=== PATIENT | female | born 1965 | race Caucasian/White ===

== ENCOUNTER → 2020-02-03 15:46 | Outpatient (CLI) | payer OTHER, SELFPAY ==
--- NOTE | ~2020-02-03 | US_ITS ---
EXAMINATION: US thyroid DATE: 02/03/2020 16:06 INDICATION: Thyroid nodule. TECHNIQUE: Multiple ultrasound images of the thyroid were obtained. COMPARISON: Ultrasound 10/13/2018, 03/05/11 FINDINGS: The right thyroid lobe measures 4.3 x 1.0 x 1.1 cm. The left thyroid lobe measures 4.1 x 0.9 x 1.4 c m. In the left thyroid lobe, there is a 16 mm solid, hypoechoic, pazut-inpl-whfk nodule with ill-def ined margin without echogenic foci (TI-RADS TR4), decreased in size from 21 mm on 03/05/11 and with hi story of benign biopsy on 03/01/08. IMPRESSION: 1. Left thyroid nodule with decrease in size from 03/05/2011 and with history of benign biopsy on 02/02. No follow-up is needed. Reviewed, dictated and finalized at location A. IMPRESSION: 1. Left thyroid nodule with decrease in size from 03/05/2011 and with history of benign biopsy on 03/01/2008. No follow-up is needed.
== END ==
PROVIDERS: PCP Family Medicine; Visit Provider Family Medicine
DX: E04.1 Nontoxic single thyroid nodule (principal)
CPT/HCPCS: 76536

== ENCOUNTER → 2020-02-28 15:48 | Outpatient (CLI) | payer OTHER, SELFPAY ==
--- NOTE | ~2020-02-28 | DEXA_ITS ---
Bone Density Report Name: Beverley Carbajal Age: 54 Sex: Female Ethnicity: White Date of : 1965 Indication: postmenopausal; screening for osteoporosis; height loss; seizure disorder; Referring Provider: KAVIN, [facility] Study: Bone densitometry was performed. Exam Date: February 28, 2020 Accession number: [id number] Bone Density: Region BMD T-score Z-score Classification AP Spine (L1-L4) 0.777 -2.5 -1.4 Osteoporosis Femoral Neck (Left) 0.628 -2.0 -1.0 Osteopenia Total Hip (Left) 0.787 -1.3 -0.6 Osteopenia Femoral Neck (Right) 0.623 -2.0 -1.0 Osteopenia Total Hip (Right) 0.769 -1.4 -0.8 Osteopenia Total Hip Mean 0.778 -1.4 -0.7 Osteopenia World Health Organization criteria for BMD impression classify patients as: Normal (T-score at or above -1.0), Osteopenia (T-score between -1.0 and -2.5), or Osteoporosis (T-score at or below -2.5). 10-year Fracture Risk: FRAX not reported because: Some T-score for Spine Total or Hip Total or Femoral Neck at or below -2.5 Clinical Information Provided by Patient: Has used the following medications: Vitamin D, Calcium Has the following medical conditions: Any Seizure Disorders Patient maximum height was 64 Menopause Age: 45 No regular weight bearing exercise Drinks caffeinated beverages Onset of menses at age 14 Number of children 2 Missed period for more than 6 months in a row Impression: The patient has osteoporosis, based on the Total Spine T-score. Discussion: INCREASED RISK OF FRACTURE. BONE DENSITY IS UNDESIRABLY LOW AT ONE OR MORE SKELETAL SITES, CONSISTENT WITH POSTMENOPAUSAL OSTEOPOROSIS. This patient's lowest T-score meets the World Health Organization's (WHO) criteria for osteoporosis at one or more sites (T-score -2.5 or below). In untreated patients, the risk of osteoporotic fracture increases approximately two-fold for each 1.0 SD decrease in T-score. Low bone density is not the only risk factor for fracture; also consider factors such as patient's age, frailty or poor health, risk of falling, risk of injury, previous osteoporotic fracture, family history of osteoporosis, cigarette smoking, low body weight, etc. Not everyone with low bone mineral density has osteoporosis; osteomalacia and other metabolic bone disorders should also be considered. Patients who have osteoporosis should be evaluated for specific diseases and conditions (secondary causes) that may cause or contribute to bone loss. The [place] [employer]ocrinologists (AACE) and National Osteoporosis Foundation (NOF) recommend pharmacologic intervention for all postmenopausal women whose T-score is in this range. The patient should follow a healthful lifestyle (good nutrition with adequate calcium and vitamin D, and appropriate weight-bearing exercise). Follow-Up: Consider a repeat
== END ==
PROVIDERS: Visit Provider Family Medicine
DX: E04.1 Nontoxic single thyroid nodule (principal); M85.89 Other specified disorders of bone density and structure, multiple sites; M81.0 Age-related osteoporosis without current pathological fracture
CPT/HCPCS: 77080

== ENCOUNTER 2020-05-09 16:31 | Outpatient (CLI) | payer OTHER, SELFPAY ==
--- NOTE | ~2020-05-09 | MM_ITS ---
EXAMINATION: MM screening [facility] BI w rebecca HISTORY: Screening mammogram TECHNIQUE: Craniocaudal and mediolateral oblique 3-D tomosynthesis images were obtained and synthetic 2-D images were generated. CAD analysis was submitted and interpreted. COMPARISON: 11/27/2014, 12/03/2012 BREAST PARENCHYMAL COMPOSITION: The breasts are heterogeneously dense, which may obscure small masses . FINDINGS: There is no evidence of suspicious mass, calcification, or architectural distortion to sugg est malignancy in either breast. There has been no suspicious interval change. IMPRESSION: 1. No mammographic evidence of malignancy. 2. Recommend routine screening mammography in one year. BI-RADS Category 1: Negative Reviewed, dictated and finalized at location A. ING MACHINE OPERATOR
== END 2020-05-09 16:32 | disposition home or self-care (01) ==
LOC: ANHIMG 16:34
PROVIDERS: PCP Family Medicine; Visit Provider Family Medicine
DX: Z12.31 Encounter for screening mammogram for malignant neoplasm of breast (principal)
CPT/HCPCS: 77063; 77067

== ENCOUNTER 2021-01-16 10:24 | Emergency (ER) | payer OTHER, SELFPAY ==
[2021-01-16 10:35] VITALS: BP 112/76; PULSE 87; RESP 16; TEMP 36.8; O2SAT 99
--- NOTE | 2021-01-16 10:41 | ED.URI ---
HPI - URI/Sore Throat General Chief Complaint: Upper Respiratory Infection Stated Complaint: Sore Throat Time Seen by Provider: 01/16/21 10:43 Source: patient Mode of arrival: ambulatory Limitations: no limitations History of Present Illness HPI Narrative: Beverley Carbajal is a 55 yo female with a PMH of hypothyroid, high choesteresterol, ostepenia, seizures, who comes to [facility] with complaints of a burning sore throat that started yesterday. She called her primary care physician who refused to see her in the office and told her to go get swabbed for strep throat. She is afebrile. Related Data Home Medications Medication Instructions Recorded Confirmed alendronate 70 mg PO DAILY 01/16/21 01/16/21 aspirin 81 mg PO DAILY 01/16/21 01/16/21 atorvastatin 20 mg PO DAILY 01/16/21 01/16/21 calcium carbonate-vitamin D3 1 tablet PO DAILY 01/16/21 01/16/21 carbamazepine 100 mg PO DAILY 01/16/21 01/16/21 levothyroxine 100 mcg PO DAILY 01/16/21 01/16/21 oxcarbazepine 300 mg PO DAILY 01/16/21 01/16/21 zonisamide 100 mg PO DAILY 01/16/21 01/16/21 Allergies Allergy/AdvReac Type Severity Reaction Status Date / Time metoclopramide Allergy Intermediate SHAKES Verified 01/16/21 10:44 codeine Allergy Mild Rash Verified 01/16/21 10:44 hydrocodone Allergy Mild Rash Verified 01/16/21 10:44 lorazepam Allergy Mild Confusion Verified 01/16/21 10:44 penicillin G Allergy Mild Rash Verified 01/16/21 10:44 Penicillins Allergy Mild RASH Verified 01/16/21 10:44 Review of Systems Review of Systems: CONSTITUTIONAL: Denies fever, chills, sweats. EYES: Denies visual changes, redness, discharge. ENT: Denies rhinorrhea, congestion, has sore throat, otalgia. CARDIOVASCULAR: Denies chest pain, palpitations, edema. RESPIRATORY: Denies dyspnea, wheezing, cough GASTROINTESTINAL: Denies abdominal pain, nausea, vomiting, diarrhea. GENITOURINARY: Denies dysuria, hematuria, abnormal discharge SKIN: Denies rash or itching. NEUROLOGIC: Denies numbness, or focal weakness. PSYCHIATRIC: Denies anxiety or depression. PMFSH Past Medical History Medical History Basal cell carcinoma (BCC) of right nasal sidewall High cholesterol Osteopenia Seizure disorder Social History Social History Smoking status: Never smoker Alcohol intake: never Comments At time of signature, I agree with nursing past medical, surgical, social and family history. There is no relevant family history pertinent to the presenting complaint. Exam Narrative: GENERAL: This is a well-nourished, well-developed patient, in mild distress. HEAD: normocephalic, atraumatic. EYES: Sclera clear/white. Vision is grossly intact. EARS: External ears normal, auditory canals clear and without drainage, TMs normal without perforation. Hearing grossly intact. NOSE: External nose normal without nasal discharge, nares without redness, no rhinorrhea. THROAT: Mucous membranes moist, posterior pharynx erythema, no exudate NECK: Neck supple, mild-tender CARDIOVASCULAR: Regular rate and rhythm without murmurs, gallops, or rubs. RESPIRATORY: Clear to auscultation. Breath sounds equal bilaterally. No wheezes, rales, or rhonchi. GASTROINTESTINAL: Abdomen soft, SKIN: warm, intact with no suspicious lesions or rash, good texture and turgor. NEURO: awake, alert, and oriented to person, place and time. There were no obvious focal neurologic abnormalities. Steady gait EXTREMITIES: Normal range of motion. 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 She took a home Covid test was negative but has a PCR scheduled for this afternoon at [facility]. Her initial strep is negative and both be sent for culture. She had a telemedicine visit with her doctor nubia
== END 2021-01-16 11:18 | disposition home or self-care (01) ==
PROVIDERS: Emergency Provider Nurse Practitioner; PCP Family Medicine
DX: J02.9 Acute pharyngitis, unspecified (principal); Z79.82 Long term (current) use of aspirin
CPT/HCPCS: 87081; 87880; 99213; G0463

== ENCOUNTER 2021-02-11 10:35 | Emergency (ER) | payer OTHER, SELFPAY ==
[2021-02-11 10:45] VITALS: BP 130/88; PULSE 118; RESP 18; TEMP 37.9; O2SAT 99
--- NOTE | 2021-02-11 11:07 | ED.URI ---
HPI - URI/Sore Throat General Chief Complaint: Upper Respiratory Infection Stated Complaint: Sinus Time Seen by Provider: 02/11/21 11:07 Source: patient, family and RN notes reviewed Mode of arrival: ambulatory Limitations: no limitations History of Present Illness HPI Narrative: Matheus is a 55-year-old female ambulatory to the [facility] today. Patient states she is having sinus pressure ear pain cough for greater than 4 weeks. Patient states she was treated 1 month ago for strep throat with azithromycin. Patient states it was a virtual visit no test was done. Patient states that she has used multiple mvdl-idr-ckipcip remedies without relief. Patient states that sore throat is better. Patient complains of chronic cough and left-sided sinus pressure. Patient has taken Zyrtec, Mucinex, Tylenol Cold, with no relief. Patient states she had a negative Covid test at home test on Thursday. Patient states she gets tested weekly at school for Covid. Patient has had her Pfizer vaccine. Patient states on Thursday she had a fever of 100.5. Related Data Home Medications Medication Instructions Recorded Confirmed alendronate 70 mg PO DAILY 01/16/21 01/16/21 aspirin 81 mg PO DAILY 01/16/21 01/16/21 atorvastatin 20 mg PO DAILY 01/16/21 01/16/21 calcium carbonate-vitamin D3 1 tablet PO DAILY 01/16/21 01/16/21 carbamazepine 100 mg PO DAILY 01/16/21 01/16/21 levothyroxine 100 mcg PO DAILY 01/16/21 01/16/21 oxcarbazepine 300 mg PO DAILY 01/16/21 01/16/21 zonisamide 100 mg PO DAILY 01/16/21 01/16/21 Allergies Allergy/AdvReac Type Severity Reaction Status Date / Time metoclopramide Allergy Intermediate SHAKES Verified 02/11/21 13:02 codeine Allergy Mild Rash Verified 02/11/21 13:02 hydrocodone Allergy Mild Rash Verified 02/11/21 13:02 lorazepam Allergy Mild Confusion Verified 02/11/21 13:02 penicillin G Allergy Mild Rash Verified 02/11/21 13:02 Penicillins Allergy Mild RASH Verified 02/11/21 13:02 Review of Systems Review of Systems: CONSTITUTIONAL: Denies body aches, chills, or sweats.+ fever EYES: Denies visual changes, redness, or discharge. ENT: + rhinorrhea, congestion, sore throat, and otalgia. CARDIOVASCULAR: Denies chest pain, palpitations, or edema. RESPIRATORY: + cough, negative for shortness of breath GASTROINTESTINAL: Denies abdominal pain, nausea, vomiting, or diarrhea. GENITOURINARY: Denies dysuria or hematuria. SKIN: Denies rash, itching, or wounds. MUSCULOSKELETAL: Denies back pain, joint pain, or myalgia. NEUROLOGIC: Denies headache, numbness, tingling, or weakness. PSYCH: Denies depression or anxiety. All systems reviewed & are unremarkable except as noted in HPI and below PMFSH Past Medical History Medical History Basal cell carcinoma (BCC) of right nasal sidewall High cholesterol Osteopenia Seizure disorder Social History Social History Smoking status: Never smoker Alcohol intake: never Comments At time of signature, I have reviewed and agree with nursing past medical, surgical, social and family history unless otherwise noted. Please see nursing chart for further information. There is no relevant family history pertinent to the presenting complaint Exam Narrative: GENERAL: Well-appearing, well-nourished, and in no acute distress. HEAD: Normocephalic, atraumatic. EYES: EOMI. No redness or drainage. Conjunctivae normal. ENT: Mucous membranes pink and moist. Nares clear. No rhinorrhea. TMs dull, fluid filled with mild bulging, Throat erythemic with clear post-nasal discharge, Uvula midline. left maxillary sinus tenderness with palpation. NECK: Normal AROM. Supple. + left anterior cervical lymphadenopathy. CHEST: No respiratory distress. Clear to auscultation. MUSCULOSKELETAL: No bony tenderness. EXTREMITIES: Normal range of motion. No edema. SKIN: Warm, dry, no rash. Capillary refill
--- NOTE | 2021-02-11 11:17 | ED.URI ---
HPI - URI/Sore Throat General Chief Complaint: Upper Respiratory Infection Stated Complaint: Sinus Time Seen by Provider: 02/11/21 11:07 Source: patient and RN notes reviewed Mode of arrival: ambulatory Limitations: no limitations History of Present Illness HPI Narrative: Patient is a 55-year-old female here today for left-sided sinus pressure, ear pain, cough. Patient was treated 1 month ago with azithromycin for strep throat by her primary care on a virtual visit. Patient states she has had the cough and sinus pressure for since she was treated. Patient states it got worse on Thursday with a fever of 100.5. Patient has taken multiple orab-cvc-dhtzyov medications in the last month for treatment. Patient states she has used Zyrtec, Tylenol Cold and sinus, and others. 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 She is vaccinated with the Simphatic vaccine. She has been using Mucinex without relief. MD elicited complaint: fever and sinus pain Pertinent past history: seasonal allergies Onset (ago): month(s) Related Data Home Medications Medication Instructions Recorded Confirmed alendronate 70 mg PO DAILY 01/16/21 01/16/21 aspirin 81 mg PO DAILY 01/16/21 01/16/21 atorvastatin 20 mg PO DAILY 01/16/21 01/16/21 calcium carbonate-vitamin D3 1 tablet PO DAILY 01/16/21 01/16/21 carbamazepine 100 mg PO DAILY 01/16/21 01/16/21 levothyroxine 100 mcg PO DAILY 01/16/21 01/16/21 oxcarbazepine 300 mg PO DAILY 01/16/21 01/16/21 zonisamide 100 mg PO DAILY 01/16/21 01/16/21 Allergies Allergy/AdvReac Type Severity Reaction Status Date / Time metoclopramide Allergy Intermediate SHAKES Verified 01/16/21 10:44 codeine Allergy Mild Rash Verified 01/16/21 10:44 hydrocodone Allergy Mild Rash Verified 01/16/21 10:44 lorazepam Allergy Mild Confusion Verified 01/16/21 10:44 penicillin G Allergy Mild Rash Verified 01/16/21 10:44 Penicillins Allergy Mild RASH Verified 01/16/21 10:44 Review of Systems Review of Systems: CONSTITUTIONAL: Denies body aches, chills, or sweats; + fever EYES: Denies visual changes, redness, or discharge. ENT:+ rhinorrhea, congestion, sore throat, or otalgia. CARDIOVASCULAR: Denies chest pain, palpitations, or edema. RESPIRATORY: + cough or denies dyspnea. GASTROINTESTINAL: Denies abdominal pain, nausea, vomiting, or diarrhea. GENITOURINARY: Denies dysuria or hematuria. SKIN: Denies rash, itching, or wounds. MUSCULOSKELETAL: Denies back pain, joint pain, or myalgia. NEUROLOGIC: Denies headache, numbness, tingling, or weakness. PSYCH: Denies depression or anxiety. All systems reviewed & are unremarkable except as noted in HPI and below PMFSH Past Medical History Medical History Basal cell carcinoma (BCC) of right nasal sidewall High cholesterol Osteopenia Seizure disorder Social History Social History Smoking status: Never smoker Alcohol intake: never Comments At time of signature, I have reviewed and agree with nursing past medical, surgical, social and family history unless otherwise noted. Please see nursing chart for further information. There is no relevant family history pertinent to the presenting complaint Exam Narrative: GENERAL: Well-appearing, well-nourished, and in no acute distress. HEAD: Normocephalic, atraumatic. EYES: EOMI. No redness or drainage. Conjunctivae normal. ENT: Mucous membranes pink and moist. Nares clear. No rhinorrhea. TMs dull, fluid filled, mild bulging, Throaterythematous, clear post nasal drainage. Uvula midline. left maxillary sinus tenderness with palpation. NECK: Normal AROM. Supple. left anterior cervical lymphadenopathy. CHEST: No respiratory distress. Clear to auscultation. MUSCULOSKELETAL: No bony tenderness. EXTREMITIES: Normal range of motion. No edema. SKIN: Warm, dry, no rash. Capil
== END 2021-02-11 11:41 | disposition home or self-care (01) ==
PROVIDERS: Emergency Provider Nurse Practitioner Family; PCP Family Medicine
DX: J01.00 Acute maxillary sinusitis, unspecified (principal); E78.00 Pure hypercholesterolemia, unspecified; M81.0 Age-related osteoporosis without current pathological fracture; Z85.828 Personal history of other malignant neoplasm of skin; G40.909 Epilepsy, unspecified, not intractable, without status epilepticus
CPT/HCPCS: 99213; G0463

== ENCOUNTER → 2021-03-05 17:36 | Outpatient (CLI) | payer OTHER, SELFPAY ==
--- NOTE | ~2021-03-05 | XR_ITS ---
EXAMINATION: XR ribs RT 2V w CXR 2V INDICATION: Cough TECHNIQUE: Frontal and lateral views of the chest and 3 views of the left ribs were obtained. COMPARISON: None. FINDINGS: The lungs are free of acute opacities. There is no pleural effusion or pneumothorax. The ca rdiomediastinal silhouette is normal. There is mild thoracic spondylosis. There is a nondisplaced fra cture at the lateral aspect of the right 10th rib. Surgical clips in the right upper quadrant are lik vinny from prior cholecystectomy. IMPRESSION: 1. Nondisplaced right 10th rib fracture. 2. No acute cardiopulmonary abnormality. Reviewed, dictated and finalized at location B.
== END ==
PROVIDERS: PCP Family Medicine; Visit Provider Family Medicine
DX: R07.81 Pleurodynia (principal); R05.9 Cough, unspecified; S23.29XA Dislocation of other parts of thorax, initial encounter
CPT/HCPCS: 71046; 71100

== ENCOUNTER 2021-07-16 16:43 | Emergency (ER) | payer OTHER, SELFPAY ==
[2021-07-16 17:08] VITALS: BP 133/82; PULSE 98; RESP 18; TEMP 37.1; O2SAT 100
--- NOTE | 2021-07-16 17:43 | ED.URI ---
HPI - URI/Sore Throat General Chief Complaint: Upper Respiratory Infection Stated Complaint: sinus pressure Time Seen by Provider: 07/16/21 17:30 Source: patient and RN notes reviewed Mode of arrival: ambulatory Limitations: no limitations History of Present Illness HPI Narrative: 55-year-old female presents with concern for 1 week history of sinus pressure, pain, congestion, pain behind her eyes, rhinorrhea, sneezing. Reports symptoms started after she went to the dentist. Reports history of sinus infections. Reports taking laro-vlz-yziqmjw medications including Sudafed without relief. MD elicited complaint: rhinorrhea, nasal congestion and sinus pain Related Data Home Medications Medication Instructions Recorded Confirmed aspirin 81 mg PO DAILY 01/16/21 07/16/21 atorvastatin 20 mg PO DAILY 01/16/21 07/16/21 levothyroxine 100 mcg PO DAILY 01/16/21 07/16/21 oxcarbazepine 300 mg PO DAILY 01/16/21 07/16/21 zonisamide 100 mg PO DAILY 01/16/21 07/16/21 Allergies Allergy/AdvReac Type Severity Reaction Status Date / Time metoclopramide Allergy Intermediate SHAKES Verified 07/16/21 17:21 codeine Allergy Mild Rash Verified 07/16/21 17:21 hydrocodone Allergy Mild Rash Verified 07/16/21 17:21 lorazepam Allergy Mild Confusion Verified 07/16/21 17:21 penicillin G Allergy Mild Rash Verified 02/11/21 13:02 Penicillins Allergy Mild RASH Verified 07/16/21 17:21 Review of Systems Review of Systems: CONSTITUTIONAL: Reports malaise. Denies chills, sweats, or fever. EYES: Denies visual changes, redness, or discharge. ENT: Reports rhinorrhea, congestion, sinus pain. Denies otalgia and sore throat. CARDIOVASCULAR: Denies chest pain, palpitations, or edema. RESPIRATORY: Reports occasional cough. Denies dyspnea. GASTROINTESTINAL: Denies abdominal pain, nausea, vomiting, diarrhea SKIN: Denies rash or itching. MUSCULOSKELETAL: Denies myalgia. NEUROLOGIC: Reports headache. All systems reviewed & are unremarkable except as noted in HPI and below PMFSH Past Medical History Medical History Basal cell carcinoma (BCC) of right nasal sidewall High cholesterol Osteopenia Seizure disorder Social History Social History Smoking status: Never smoker Alcohol intake: never Comments At time of signature, agree with nursing past medical, surgical, social and family history. There is no relevant family history pertinent to the presenting complaint Exam Narrative: GENERAL: Well-appearing, well-nourished, and in no acute distress. HEAD: Normocephalic EYES: PERRLA, conjunctivae clear ENT: Nares clear, turbinates edematous and erythematous, sinus tenderness. Mucous membranes moist. TM pearly olea with dull light reflex bilaterally; no tragal tenderness. Oropharynx not erythematous without lesions. Tonsils not enlarged and without exudate, no drooling, no hoarseness, no trismus, uvula midline. NECK: Supple. No lymphadenopathy CHEST: Clear to auscultation, breath sounds equal. No wheezing, rhonchi, rales, or stridor. No respiratory distress, speaks in full sentences. HEART: Regular rate and rhythm. No murmur heard. SKIN: Warm, dry, no rash. NEURO: Alert and oriented x3. PSYCH: Normal mood and affect Course Course Emergency Course: Patient is aware of diagnosis, understands and agrees to treatment plan. Anticipatory guidance given. Patient agrees to follow-up as directed and is aware of reasons to seek care at the emergency department. Portions of this record may have been created with voice recognition software Level of Care: Express Care Visit Vital Signs Vital signs: Vital Signs Temperature 98.7 F 07/16/21 17:08 Pulse Rate 98 07/16/21 17:08 Respiratory Rate 18 07/16/21 17:08 Blood Pressure 133/82 07/16/21 17:08 Pulse Oximetry 100 07/16/21 17:08 Temperature 98.7 F 07/16/21 17:08 Pulse Rate 98 07/16/21 17:08
== END 2021-07-16 17:51 | disposition home or self-care (01) ==
PROVIDERS: Emergency Provider Nurse Practitioner; PCP Family Medicine
DX: J01.90 Acute sinusitis, unspecified (principal); E78.00 Pure hypercholesterolemia, unspecified; M85.80 Other specified disorders of bone density and structure, unspecified site; Z85.828 Personal history of other malignant neoplasm of skin; Z79.82 Long term (current) use of aspirin
CPT/HCPCS: 99213; G0463

== ENCOUNTER 2021-12-30 10:51 | Emergency (ER) | payer OTHER, SELFPAY ==
[2021-12-30 11:00] VITALS: BP 109/74; PULSE 98; RESP 18; TEMP 36.6; O2SAT 100
--- NOTE | 2021-12-30 11:25 | ED.URI ---
HPI - URI/Sore Throat General Chief Complaint: Upper Respiratory Infection Stated Complaint: fever,nasal congestion,chills Time Seen by Provider: 12/30/21 11:25 Source: patient Mode of arrival: ambulatory Limitations: no limitations History of Present Illness HPI Narrative: Ms. Carbajal is a 56-year-old female patient presenting to the clinic today with complaints of low-grade fever, sinus pressure, cough, sore throat, nasal congestion, and chills x4 days. She reports she has also had some nausea from the postnasal drip. She thinks that she may have a sinus infection. She reports that she has done 3 at home COVID test and they were all negative. Last test was last night around 10:00. Patient is declining COVID and strep testing in the clinic. MD elicited complaint: sore throat and nasal congestion Related Data Home Medications Medication Instructions Recorded Confirmed atorvastatin 20 mg tablet 20 mg PO DAILY 01/16/21 12/30/21 levothyroxine 100 mcg tablet 100 mcg PO DAILY 01/16/21 12/30/21 oxcarbazepine 300 mg tablet 300 mg PO DAILY 01/16/21 12/30/21 zonisamide 100 mg capsule 100 mg PO DAILY 01/16/21 12/30/21 Allergies Allergy/AdvReac Type Severity Reaction Status Date / Time metoclopramide Allergy Intermediate SHAKES Verified 12/30/21 11:17 codeine Allergy Mild Rash Verified 12/30/21 11:17 hydrocodone Allergy Mild Rash Verified 12/30/21 11:17 lorazepam Allergy Mild Confusion Verified 12/30/21 11:17 penicillin G Allergy Mild Rash Verified 12/30/21 11:17 Penicillins Allergy Mild RASH Verified 12/30/21 11:17 Review of Systems Review of Systems: Pertinent positives per HPI. Patient denies any rash, headache, visual changes, dizziness, shortness of breath, chest pain, palpitations, nausea, vomiting, diarrhea, constipation, abdominal pain, or any urinary issues. [facility] Past Medical History Medical History Basal cell carcinoma (BCC) of right nasal sidewall High cholesterol Osteopenia Seizure disorder Social History Social History Smoking status: Never smoker Alcohol intake: never Comments At the time of my signature, I reviewed and agree with the nursing past medical, surgical, social, and family history. There is no relevant family history pertinent to the patient complaint. Exam Narrative: General: Well-developed, well nourished, in no apparent distress Head: Normocephalic, atraumatic Eyes: Pupils equally round and reactive to light bilaterally, EOM intact, sclera and conjunctive clear, no discharge, lids normal Ears: TMs intact and dull, ear canals clear, no drainage, grossly hearing normal. Nose: Nares patent, clear nasal discharge, mild inflammation, no sinus tenderness. Mouth: Oral pharynx without lesions or masses, good dentition, MMM. Postnasal drip Neck: Supple, trachea midline, no enlargement of anterior or posterior cervical nodes, no thyroid masses or goiter palpable. Cardio: Regular rate and rhythm, s1 and s2 normal, no murmur appreciated. Resp: Clear to auscultation bilaterally, no rhonchi, rales, wheezing or rubs Course Course Emergency Course: Portions of this record may have been created with voice recognition software. Level of Care: Express Care Visit Vital Signs Vital signs: Vital Signs Temperature 36.6 C 12/30/21 11:00 Pulse Rate 98 12/30/21 11:00 Respiratory Rate 18 12/30/21 11:00 Blood Pressure 109/74 12/30/21 11:00 Pulse Oximetry 100 12/30/21 11:00 Oxygen Delivery Room Air 12/30/21 11:00 Temperature 36.6 C 12/30/21 11:00 Pulse Rate 98 12/30/21 11:00 Respiratory Rate 18 12/30/21 11:00 Blood Pressure 109/74 12/30/21 11:00 Pulse Oximetry 100 12/30/21 11:00 Oxygen Delivery Room Air 12/30/21 11:00 Vital signs reviewed MDM - URI/Sore Throat MDM Narrative Medical decision making narrative: At the time of vis
== END 2021-12-30 11:48 | disposition home or self-care (01) ==
PROVIDERS: Emergency Provider Nurse Practitioner Family; PCP Family Medicine
DX: J06.9 Acute upper respiratory infection, unspecified (principal); E78.00 Pure hypercholesterolemia, unspecified; M85.80 Other specified disorders of bone density and structure, unspecified site; G40.909 Epilepsy, unspecified, not intractable, without status epilepticus; Z85.828 Personal history of other malignant neoplasm of skin
CPT/HCPCS: 99213; G0463

== ENCOUNTER 2022-02-19 16:17 | Emergency (ER) | payer OTHER, SELFPAY ==
[2022-02-19 16:26] VITALS: BP 117/82; PULSE 104; RESP 18; TEMP 37.2; O2SAT 100
--- NOTE | 2022-02-19 16:37 | ED.URI ---
HPI - URI/Sore Throat General Chief Complaint: Upper Respiratory Infection Stated Complaint: Cough,Sore Throat,Congestion,Headache Time Seen by Provider: 02/19/22 16:35 Source: patient, RN notes reviewed and old records reviewed Mode of arrival: ambulatory Limitations: no limitations History of Present Illness HPI Narrative: 56-year-old female who presents to [facility] with complaints of cough, sore throat, congestion, headache for the past 2-3 weeks.She reports on Thursday that she had 101F fever, yesterday her chest started hurting and her throat hurts when she coughs. Patient reports that she has history of sinus infections. She states that she has taken 3 COVID tests which have been negative.Patient reports that she has taken everything OTC she can think of and symptoms have not improved. MD elicited complaint: cough and sore throat Pertinent past history: sinusitis Onset (ago): week(s) (2-3 weeks symptoms) Treatments prior to arrival: acetaminophen, ibuprofen (naproxen) and other (Sudafed, Mucinex DM, tesson pearls and nasal spray.) Related Data Home Medications Medication Instructions Recorded Confirmed atorvastatin 20 mg tablet 20 mg PO DAILY 01/16/21 02/19/22 levothyroxine 100 mcg tablet 100 mcg PO DAILY 01/16/21 02/19/22 oxcarbazepine 300 mg tablet 300 mg PO DAILY 01/16/21 02/19/22 zonisamide 100 mg capsule 100 mg PO TID 01/16/21 02/19/22 alendronate 70 mg tablet 70 mg PO WEEKLY 02/19/22 02/19/22 aspirin 81 mg tablet,delayed 81 mg DAILY 02/19/22 02/19/22 release Allergies Allergy/AdvReac Type Severity Reaction Status Date / Time metoclopramide Allergy Intermediate SHAKES Verified 02/19/22 16:42 codeine Allergy Mild Rash Verified 02/19/22 16:42 hydrocodone Allergy Mild Rash Verified 02/19/22 16:42 lorazepam Allergy Mild Confusion Verified 02/19/22 16:42 penicillin G Allergy Mild Rash Verified 02/19/22 16:42 Penicillins Allergy Mild RASH Verified 02/19/22 16:42 Review of Systems Review of Systems: CONSTITUTIONAL: reports malaise, chills, sweats, intermittent fever. EYES: Denies visual changes, redness, or discharge. ENT: Reports rhinorrhea, congestion, sinus pain,no otalgia positive for sore throat. CARDIOVASCULAR: Denies chest pain, palpitations, or edema. RESPIRATORY: Reports cough.? Denies dyspnea. GASTROINTESTINAL: Denies abdominal pain, nausea, vomiting, diarrhea SKIN: Denies rash or itching. MUSCULOSKELETAL: Denies myalgia. NEUROLOGIC: positive for headache. All systems reviewed & are unremarkable except as noted in HPI and below PMFSH Past Medical History Medical History (Updated 02/19/22 @ 17:27 by Rosalind Ferraro NP) Basal cell carcinoma (BCC) of right nasal sidewall High cholesterol History of sinus problem Osteopenia Post-menopausal Seizure disorder Surgical History Surgical History (Updated 02/19/22 @ 17:26 by Rosalind Ferraro NP) Hx of cholecystectomy Social History Social History (Updated 02/19/22 @ 17:26 by Rosalind Ferraro NP) Smoking status: Never smoker Alcohol intake: never Substance use type: does not use Living arrangements: with family Gender identity (if verbalized by the patient): Female Comments At time of signature, agree with nursing past medical, surgical, social and family history. There is no relevant family history pertinent to the presenting complaint Exam Narrative: GENERAL: Well-appearing, well-nourished, and in no acute distress. HEAD: Normocephalic EYES: PERRLA, conjunctivae clear ENT: Nares clear, turbinates edematous and erythematous, clear discharge. Mucous membranes moist. TM pearly olea with dull light reflex bilaterally; no tragal tenderness. Oropharynx erythematous without lesions. Tonsils not enlarged and without exudate, no drooling, no hoarseness, no trismus, uvula midline. NECK: Supple. No lymphadenopathy CHEST: Clear to auscultation, breath sounds equal. No wheezing, rhonchi, rales, or stridor. No respirat
== END 2022-02-19 17:06 | disposition home or self-care (01) ==
PROVIDERS: Emergency Provider Registered Nurse; PCP Family Medicine
DX: J01.90 Acute sinusitis, unspecified (principal); E78.00 Pure hypercholesterolemia, unspecified; M85.80 Other specified disorders of bone density and structure, unspecified site; Z79.82 Long term (current) use of aspirin; G40.909 Epilepsy, unspecified, not intractable, without status epilepticus; Z85.828 Personal history of other malignant neoplasm of skin
CPT/HCPCS: 87081; 87804; 87880; 99213; G0463

== ENCOUNTER → 2022-10-31 11:40 | Outpatient (CLI) | payer OTHER, SELFPAY ==
--- NOTE | ~2022-10-31 | MM_ITS ---
EXAMINATION: MM screening marcus BI w rebecca HISTORY: Screening mammogram TECHNIQUE: Craniocaudal and mediolateral oblique 3-D tomosynthesis images were obtained and synthetic 2-D images were generated. CAD analysis was submitted and interpreted. COMPARISON: 05/09/2020, 11/27/2014, 12/03/2012 bilateral screening mammogram examinations BREAST PARENCHYMAL COMPOSITION: The breasts are heterogeneously dense, which may obscure small masses . FINDINGS: There is no evidence of suspicious mass, calcification, or architectural distortion to sugg est malignancy in either breast. There has been no suspicious interval change. IMPRESSION: 1. No mammographic evidence of malignancy. 2. Recommend routine screening mammography in one year. BI-RADS Category 1: Negative Reviewed, dictated and finalized at location A.
== END ==
PROVIDERS: PCP Family Medicine; Visit Provider Family Medicine
DX: Z12.31 Encounter for screening mammogram for malignant neoplasm of breast (principal)
CPT/HCPCS: 77063; 77067

== ENCOUNTER → 2022-11-07 12:50 | Outpatient (CLI) | payer OTHER, SELFPAY ==
--- NOTE | ~2022-11-07 | US_ITS ---
EXAMINATION: US thyroid DATE: 11/07/2022 13:25 INDICATION: Thyroid nodule. TECHNIQUE: Multiple ultrasound images of the thyroid were obtained. COMPARISON: Ultrasound 02/03/2020 FINDINGS: The right thyroid lobe measures 4.2 x 0.8 x 1.0 cm. The left thyroid lobe measures 4.3 x 0.9 x 1.2 c m. In the left thyroid lobe, there is a 1.7 cm solid, hypoechoic, wider than tall nodule with ill-de fined margin without echogenic foci (TI-RADS TR4), decrease in size from 2.1 cm on 03/05/2011 and with history of benign biopsy on 03/01/2008. In the left thyroid lobe, there is a 4 mm nodule. IMPRESSION: 1. Thyroid nodules, likely not clinically significant. No follow-up is needed. Reviewed, dictated and finalized at location A.
--- NOTE | ~2022-11-07 | US_ITS ---
EXAMINATION: US soft tissue UE LT DATE: 11/07/2022 13:25 INDICATION: Mass at the left forearm TECHNIQUE: Multiple grayscale and Doppler ultrasound images of the region of concern at the left fore arm were obtained. COMPARISON: None FINDINGS: 10 x 9 x 2 mm flat lenticular region of decreased echogenicity along the junction of the bone and sup erficial muscular fascia and the more superficial subcutaneous fat. The lesion demonstrates no laborer shipyard ior acoustic enhancement and there appears be a tiny focus of internal flow on color Doppler which wo uld favor a solid ovary cystic lesion. IMPRESSION: 1. Nonspecific 10 x 9 x 2 mm hypoechoic lesion along the deep margin of the subcutaneous fat at the p osterior mid forearm which is most likely solid and for which there is a wide differential including both benign and less likely malignant etiologies. Could consider ultrasound-guided core needle biopsy for more definitive determination as clinically indicated. Reviewed, dictated and finalized at location B. IMPRESSION: 1. Nonspecific 10 x 9 x 2 mm hypoechoic lesion along the deep margin of the sub cutaneous fat at the posterior mid forearm which is most likely solid and for w hich there is a wide differential including both benign and less likely maligna nt etiologies. Could consider ultrasound-guided core needle biopsy for more def initive determination as clinically indicated.
== END ==
PROVIDERS: PCP Family Medicine; Visit Provider Family Medicine
DX: R22.32 Localized swelling, mass and lump, left upper limb (principal); E04.2 Nontoxic multinodular goiter
CPT/HCPCS: 76536; 76882

== ENCOUNTER 2023-12-11 13:19 | Outpatient (CLI) | payer OTHER, SELFPAY ==
--- NOTE | ~2023-12-11 | MM_ITS ---
EXAMINATION: MM screening marcus BI w rebecca HISTORY: Screening TECHNIQUE: Craniocaudal and mediolateral oblique 3-D tomosynthesis images were obtained and synthetic 2-D images were generated. CAD analysis was submitted and interpreted. COMPARISON: Comparison to multiple prior studies sequentially, with oldest reviewed study dated 11/27. BREAST PARENCHYMAL COMPOSITION: Not dense: There are scattered areas of fibroglandular density. FINDINGS: There is no evidence of suspicious mass, calcification, or architectural distortion to sugg est malignancy in either breast. There has been no suspicious interval change. IMPRESSION: 1. No mammographic evidence of malignancy. 2. Recommend routine screening mammography in one year. BI-RADS Category 1: Negative Reviewed, dictated and finalized at location B.
== END 2023-12-11 13:20 ==
LOC: MICIMG 13:20
PROVIDERS: PCP Family Medicine; Visit Provider Obstetrics & Gynecology Gynecology
DX: Z12.31 Encounter for screening mammogram for malignant neoplasm of breast (principal)
CPT/HCPCS: 77063; 77067

== ENCOUNTER 2024-04-22 10:45 | Emergency (ER) | payer OTHER, SELFPAY ==
[2024-04-22 11:06] VITALS: BP 118/72; PULSE 84; RESP 18; TEMP 36.6; O2SAT 100
--- NOTE | 2024-04-22 11:54 | ED.URI ---
HPI - URI/Sore Throat General Chief Complaint: Upper Respiratory Infection Stated Complaint: sinus issues Time Seen by Provider: 04/22/24 11:54 Source: patient, RN notes reviewed and old records reviewed Mode of arrival: ambulatory Limitations: no limitations History of Present Illness HPI Narrative: Patient presents with week and a half of sinus pain and congestion, nasally voice. She reports lack of energy, difficulty sleeping, postnasal drainage causing cough that is worse at night. She denies any fever, chills, sweats. She does report headache and sinus pain. Denies injury or trauma. Voices no other concerns or complaints at this time. Discharge instructions reviewed with patient, as well as provided in writing per nursing staff. The instructions also include specific and strict return/GO TO THE ER as well as f/u information. All questions have been answered, and the patient deny any further questions with discharge and discharge plan. Some parts of this dictation were generated by voice recognition software and may contain typographical and/or grammatical inaccuracies. Related Data Home Medications ?Medication ?Instructions ?Recorded ?Confirmed ?Last Taken ?Type atorvastatin 20 mg tablet 20 mg PO DAILY 01/16/21 02/19/22 Unknown History levothyroxine 100 mcg tablet 100 mcg PO DAILY 01/16/21 02/19/22 Unknown History oxcarbazepine 300 mg tablet 300 mg PO DAILY 01/16/21 02/19/22 Unknown History zonisamide 100 mg capsule 100 mg PO TID 01/16/21 02/19/22 Unknown History alendronate 70 mg tablet 70 mg PO WEEKLY 02/19/22 02/19/22 Unknown History aspirin 81 mg tablet,delayed 81 mg DAILY 02/19/22 02/19/22 Unknown History release estradiol 10 mcg vaginal tablet mcg vaginal 04/22/24 Unknown History oxybutynin chloride 5 mg tablet mg 04/22/24 Unknown History Allergies Allergy/AdvReac Type Severity Reaction Status Date / Time metoclopramide Allergy Intermediate SHAKES Verified 04/22/24 11:09 codeine Allergy Mild Rash Verified 04/22/24 11:09 hydrocodone Allergy Mild Rash Verified 04/22/24 11:09 penicillin G Allergy Mild Rash Verified 02/19/22 16:42 Penicillins Allergy Mild RASH Verified 04/22/24 11:09 lorazepam AdvReac Mild Confusion Verified 04/22/24 11:09 Review of Systems Review of Systems: All systems reviewed & are unremarkable except as noted in HPI and below Constitutional: Constitutional: Reports no additional constitutional complaints, Reports headache(s) and Reports lethargy ENT: Reports system reviewed and no additional complaints, except as documented, Reports nasal congestion, Reports nasal discharge, Reports sinus pain, Reports sinus pressure and Reports sore throat Cardiovascular: Cardiovascular: Reports no additional cardiovascular complaints Respiratory: Respiratory: Reports no additional respiratory complaints and Reports cough Gastrointestinal: Gastrointestinal: Reports no additional gastrointestinal complaints [facility] Past Medical History Medical History (Updated 04/22/24 @ 12:01 by Emeli Arellano APRN) Post-menopausal History of sinus problem High cholesterol Osteopenia Seizure disorder Basal cell carcinoma (BCC) of right nasal sidewall Surgical History Surgical History (Updated 02/19/22 @ 17:26 by Rosalind Ferraro NP) Hx of cholecystectomy Social History Social History (Updated 02/19/22 @ 17:26 by Rosalind Ferraro NP) Smoking status: Never smoker Alcohol intake: never Substance use type: does not use Living arrangements: with family Gender identity (if verbalized by the patient): Female Comments At the time of my signature, I reviewed and agree with the nursing past medical, surgical, social, and family history. There is no relevant family history pertinent to the patient complaint. Exam Const: General: cooperative, no acute distress, alert and awake Orientation/consciousness: oriented to person, oriented to place and oriented to time HENMT: Head: normal to inspection Ears: TM abnormal dull bilateral Face/Nose/Sinus: sinus tenderness Mouth: Yes moist mucous membranes Throat: posterior oropharynx abnormal erythema and postnasal drainage Resp: Effort & Inspection: normal respiratory effort and able to speak in complete sentences Auscultation: clear to auscultation bilaterally, no crackles, no rales, no rhonchi and no wheezes Cardio: Palpation: normal PMI Rate: regular rate Rhythm: regular rhythm Heart sounds: S1 normal heart sound present and S2 normal heart sound present Neuro: General: oriented to person, oriented to place and oriented to time Cranial nerves: Yes CN's II-XII intact bilaterally Psych: Appearance: grossly normal Thought process: Normal thought process present Insight: Good insight present (Psych) Judgement: Good judgement present (Psych) Course Course Level of Care: Express Care Visit Vital Signs Vital signs: Vital Signs Temperature 97.9 F 04/22/24 11:06 Pulse Rate 84 04/22/24 11:06 Respiratory Rate 18 04/22/24 11:06 Blood Pressure 118/72 04/22/24 11:06 Pulse Oximetry 100 04/22/24 11:06 Oxygen Delivery Room Air 04/22/24 11:06 Temperature 97.9 F 04/22/24 11:06 Pulse Rate 84 04/22/24 11:06 Respiratory Rate 18 04/22/24 11:06 Blood Pressure 118/72 04/22/24 11:06 Pulse Oximetry 100 04/22/24 11:06 Oxygen Delivery Room Air 04/22/24 11:06 Reviewed MDM - URI/Sore Throat MDM Narrative Medical decision making narrative: History and exam consistent with sinusitis. Patient nontoxic appearing. Stable for discharge home on p.o. antibiotic therapy. Discharge instructions reviewed with patient, as well as provided in writing per nursing staff. The instructions also include specific and strict return/GO TO THE ER as well as f/u information. All questions have been answered, and the patient deny any further questions with discharge and discharge plan. Some parts of this dictation were generated by voice recognition software and may contain typographical and/or grammatical inaccuracies. Differential Diagnosis Differential diagnosis: Likely upper respiratory infection, otitis media, sinusitis and pharyngitis Medical Records Attestation: I reviewed the patient's medical records. Discharge Plan Discharge Clinical Impression: Sinusitis Patient Disposition: Home, Self-Care Condition: Stable Instructions: Antibiotic Form, Sinusitis (ED) Additional Instructions: take medication as prescribed. Follow with primary care provider. Emergency department for any new or worsening symptoms Patient Language: Vietnamese Prescriptions: New doxycycline hyclate 100 mg capsule 100 mg PO BID Qty: 20 0RF prednisone 50 mg tablet 50 mg PO DAILY Qty: 5 0RF fluticasone propionate [Flonase Allergy Relief] 50 mcg/actuation spray,suspension 1 spray intranasal Q12H Qty: 16 0RF Rx Instructions: administer into each nostril No Action atorvastatin 20 mg tablet 20 mg PO DAILY oxcarbazepine 300 mg tablet 300 mg PO DAILY zonisamide 100 mg capsule 100 mg PO TID levothyroxine 100 mcg tablet 100 mcg PO DAILY alendronate 70 mg tablet 70 mg PO WEEKLY aspirin 81 mg tablet,delayed release (DR/EC) 81 mg DAILY oxybutynin chloride 5 mg tablet estradiol 10 mcg tablet VAGINAL Follow-up/Referrals: Mannie,MD Dheeraj [Primary Care Provider] - 2 Weeks Time of Disposition: 12:03
== END 2024-04-22 12:12 | disposition home or self-care (01) ==
PROVIDERS: Emergency Provider Nurse Practitioner Family; PCP Family Medicine
DX: J32.9 Chronic sinusitis, unspecified (principal); Z79.899 Other long term (current) drug therapy
CPT/HCPCS: 99213; G0463

== ENCOUNTER 2024-08-09 11:51 | Outpatient (CLI) | payer OTHER, SELFPAY ==
--- NOTE | ~2024-08-09 | US_ITS ---
Thyroid ultrasound. Clinical History: Thyroid nodule COMPARISON: 11/07/2022 Findings: Real-time sonography of the thyroid gland was performed. The right lobe measures 4.0 x 0.8 x 1.1 cm. The left lobe measures 3.6 x 0.7 x 1.1 cm. The isthmus is 1 mm in AP diameter. There is a 1.4 x 0.6 x 1.7 cm hypoechoic solid nodule at the left lower pole. Impression: Stable left lower pole hypoechoic nodule, as detailed above.. Reviewed, dictated and finalized at location . Impression: Stable left lower pole hypoechoic nodule, as detailed above..
== END 2024-08-09 11:52 | disposition home or self-care (01) ==
PROVIDERS: PCP Family Medicine; Visit Provider Family Medicine
DX: E04.1 Nontoxic single thyroid nodule (principal)
CPT/HCPCS: 76536

== ENCOUNTER 2024-10-22 10:34 | Emergency (ER) | payer OTHER, SELFPAY ==
--- NOTE | 2024-10-22 10:37 | ED_ITS ---
HPI - Back Pain/Injury General Chief Complaint: Back Pain/Injury Stated Complaint: back pain Time Seen by Provider: 10/22/24 10:41 Source: patient, RN notes reviewed and old records reviewed Mode of arrival: ambulatory Limitations: no limitations History of Present Illness HPI Narrative: 59-year-old female presents to the [facility] with complaints of low back pain. Currently wearing a back brace. 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 Has had progressively worsening low back pain. Has tried tramadol, naproxen no relief. Pain with changing of positions Patient denies any numbness or tingling in extremities. Denies any loss of bowel or bladder. Denies any injury Treatments prior to arrival: cold therapy and NSAIDS Related Data Home Medications ?Medication ?Instructions ?Recorded ?Confirmed ?Last Taken ?Type atorvastatin 20 mg tablet 20 mg PO DAILY 01/16/21 02/19/22 Unknown History oxcarbazepine 300 mg tablet 300 mg PO DAILY 01/16/21 02/19/22 Unknown History zonisamide 100 mg capsule 100 mg PO TID 01/16/21 02/19/22 Unknown History alendronate 70 mg tablet 70 mg PO WEEKLY 02/19/22 02/19/22 Unknown History aspirin 81 mg tablet,delayed 81 mg DAILY 02/19/22 02/19/22 Unknown History release estradiol 10 mcg vaginal tablet mcg vaginal 04/22/24 Unknown History oxybutynin chloride 5 mg tablet mg 04/22/24 Unknown History levothyroxine 88 mcg tablet mcg 10/22/24 Unknown History Allergies Allergy/AdvReac Type Severity Reaction Status Date / Time codeine Allergy Mild Rash Verified 10/22/24 10:43 hydrocodone Allergy Mild Rash Verified 10/22/24 10:43 Penicillins Allergy Mild RASH Verified 10/22/24 10:43 metoclopramide AdvReac Intermediate SHAKES Verified 10/22/24 10:43 lorazepam AdvReac Mild Confusion Verified 10/22/24 10:43 Review of Systems 2 Review of Systems: All systems reviewed & are unremarkable except as noted in HPI and below Constitutional: Constitutional: Reports no additional constitutional complaints ENT: Reports system reviewed and no additional complaints, except as documented Cardiovascular: Cardiovascular: Reports no additional cardiovascular complaints, Denies chest pain and Denies dyspnea Respiratory: Respiratory: Reports no additional respiratory complaints, Denies chest congestion, Denies cough and Denies dyspnea Gastrointestinal: Gastrointestinal: Reports no additional gastrointestinal complaints and Denies abdominal pain Musculoskeletal: Musculoskeletal: Reports as per HPI and Reports back pain Integumentary/Breasts: Skin/Breast: Reports system reviewed and no additional complaints, except as docu [facility] Past Medical History Medical History Post-menopausal History of sinus problem High cholesterol Osteopenia Seizure disorder Basal cell carcinoma (BCC) of right nasal sidewall Surgical History Surgical History Hx of cholecystectomy Social History Social History Smoking status: Never smoker Alcohol intake: never Substance use type: does not use Living arrangements: with family Gender identity (if verbalized by the patient): Female Comments At the time of my signature, I reviewed and agree with the nursing past medical, surgical, social, and family history. There is no relevant family history pertinent to the patient complaint. Exam 2 Const: General: cooperative, healthy appearing, comfortable, no acute distress, well developed, alert and well nourished Nutritional Appearance: w ell nourished Orientation/consciousness: patient oriented x3 Limitations: no limitations HENMT: Head: normal to inspection Eyes: General: appearance normal, both eyes and all related structures A lignment and Position: alignment normal Neck: Neck: normal visual inspection, full ROM, no lymphadenopathy and no meningeal signs Chest: Chest palpation & inspection: normal inspection of the chest Resp: Effort & Inspection: normal respiratory effort and able to speak in complete sentences Auscultation: clear to auscultation bilaterally, no crackles, no rales, no rhonchi and no wheezes Cardio: Rate: regular rate GI: GI Palp: No abdominal tenderness Back/Spine/Pelvis: Back: No erythema, No sacral edema and No ecchymosis C ervical Spine: normal cervical lordosis, cervical ROM normal and No cervical muscular tenderness Thoracic/Lumbar Spine: pain with thoraco-lumbar ROM, paraspinal muscle tenderness bilaterally in the mid lumbar and in the lower lumbar, No thoracic spinal tenderness and No lumbar spinal tenderness Pelvis: no pain with anterior-posterior compression and no pain with lateral compression Back/spine/pelvis image: 1. Reports progressive discomfort since . No erythema, ecchymosis. No rashes. Skin: General skin exam: normal color and no rashes or lesions noted Neuro: General: patient oriented x3, gait normal, moves all extremities and no meningeal signs Cognition (Neuro): normal cognition Speech: normal speech Gait exam (Neuro): Normal gait present Extrem: General: normal to inspection, full ROM, capillary refill normal and normal gait Psych: Appearance: grossly normal and well kempt Mental Status: mental status grossly normal Speech and movement: Normal speech and movement present and Clear speech present Affect: normal affect Attitude: cooperative Course Course Level of Care: Express Care Visit Vital Signs Vital signs: Vital Signs Temperature 97.2 F L 10/22/24 10:42 Pulse Rate 68 10/22/24 10:42 Respiratory Rate 18 10/22/24 10:42 Blood Pressure 116/75 10/22/24 10:42 Pulse Oximetry 100 10/22/24 10:42 Oxygen Delivery Room Air 10/22/24 10:42 Temperature 97.2 F L 10/22/24 10:42 Pulse Rate 68 10/22/24 10:42 Respiratory Rate 18 10/22/24 10:42 Blood Pressure 116/75 10/22/24 10:42 Pulse Oximetry 100 10/22/24 10:42 Oxygen Delivery Room Air 10/22/24 10:42 Reviewed MDM - Back Pain/Injury MDM Narrative Medical decision making narrative: Patient sitting in exam room. Patient is nontoxic, are stable. Patient presents with low back pain. No trauma, started during and coaching gymnastics No red flag symptoms noted Patient appropriate for outpatient treatment with close Discharge instructions reviewed with patient, as well as provided in writing per nursing staff. The instructions also include specific and strict return/GO TO THE ER as well as f/u information. All questions have been answered, and the patient deny any further questions with discharge and discharge plan. Some parts of this dictation were generated by voice recognition software and may contain typographical and/or grammatical inaccuracies. Differential Diagnosis Differential diagnosis: Likely lumbar radiculopathy, sciatica and strain of lumbar region Critical Care Time Critical Care Time Critical Care Time: No Discharge Plan Discharge Clinical Impression: Strain of lumbar region Qualifiers: Encounter type: initial encounter Qualified Code(s): S39.012A - Strain of muscle, fascia and tendon of lower back, initial encounter Patient Disposition: Home Condition: Stable Instructions: Antibiotic Form, Low Back Strain (ED), Acute Low Back Pain (ED), Lower Back Exercises (ED) Additional Instructions: Take naproxen twice daily to decrease inflammation and to help pain. Take Baclofen (muscle relaxer) as directed. Do not drink, drive, operate machinery, or do anything dangerous while taking this medication Exercise:Combine aerobic exercise, like walking or swimming, with specific exercises to keep the muscles in your back and abdomen strong and flexible. Proper Lifting:Be sure to lift heavy items with your legs, not your back. Do not bend over to pick something up. Keep your back straight and bend at your knees. Proper Posture:Good posture is important for avoiding future problems. A therapist can teach you how to safely stand, sit, and lift. Use warm moist heat to help with pain. Using topical such as Biofreeze, Randell-Lugo or Aspercreme can also help Follow up with Primary provider in 2-3 days, This may become a chronic condition and they will be the one to help manage your pain and order additional testing. Go to the nearest ER if you develop problems with bladder/bowel function, weakness or loss of feeling in one or both of your legs. Patient Language: [place]an Prescriptions: New baclofen 10 mg tablet 10 mg PO TID PRN (Reason: muscle pain) Qty: 15 0RF naproxen 500 mg tablet 500 mg PO BID Qty: 30 0RF lidocaine [Lidoderm] 5 % adhesive patch,medicated 1 patch topical DAILY Qty: 15 0RF Rx Instructions: leave on most painful area for up to 12 hrs No Action atorvastatin 20 mg tablet 20 mg PO DAILY oxcarbazepine 300 mg tablet 300 mg PO DAILY zonisamide 100 mg capsule 100 mg PO TID alendronate 70 mg tablet 70 mg PO WEEKLY aspirin 81 mg tablet,delayed release (DR/EC) 81 mg DAILY oxybutynin chloride 5 mg tablet estradiol 10 mcg tablet VAGINAL levothyroxine 88 mcg tablet Follow-up/Referrals: Mannie,MD Dheeraj [Primary Care Provider] - 1 Week ([facility] care follow up ) Time of Disposition: 10:56
[2024-10-22 10:42] VITALS: BP 116/75; PULSE 68; RESP 18; TEMP 36.2; O2SAT 100
== END 2024-10-22 11:00 | disposition home or self-care (01) ==
PROVIDERS: Emergency Provider Nurse Practitioner; PCP Family Medicine
DX: S39.012A Strain of muscle, fascia and tendon of lower back, initial encounter (principal); X58.XXXA Exposure to other specified factors, initial encounter; Y99.0 Civilian activity done for income or pay; G40.909 Epilepsy, unspecified, not intractable, without status epilepticus; E78.00 Pure hypercholesterolemia, unspecified; M85.80 Other specified disorders of bone density and structure, unspecified site; Z85.828 Personal history of other malignant neoplasm of skin
CPT/HCPCS: 99213; G0463

== ENCOUNTER 2024-11-25 12:35 | Outpatient (CLI) | payer OTHER, SELFPAY ==
--- NOTE | ~2024-11-25 | XR_ITS ---
[[id number] ] INDICATION: Right rib pain TECHNIQUE: Frontal projection of the upper right ribs, frontal projection of the lower right ribs, ob lique projection of all the right ribs, frontal inspiratory chest x-ray for interpretation. FINDINGS: There are no displaced rib fractures identified. There are no soft tissue abnormality see n. The lungs are clear. IMPRESSION: 1:No acute displaced rib fractures. Reviewed, dictated and finalized at location B.
--- NOTE | ~2024-11-25 | DEXA_ITS ---
Bone Density Report Name: SHAILA JUAN Age: 59 Sex: Female Ethnicity: White Date of : 1965 Indication: postmenopausal osteoporosis; monitoring treatment; height loss; seizure disorder; Referring Provider: KAVIN, [facility] Study: Bone densitometry was performed. Exam Date: November 25, 2024 Accession number: [id number] Bone Density: Region BMD T-score Z-score Classification AP Spine(L1-L4) 0.772 -2.5 -1.1 Osteoporosis Femoral Neck (Left) 0.629 -2.0 -0.7 Osteopenia Total Hip (Left) 0.770 -1.4 -0.5 Osteopenia Femoral Neck (Right) 0.604 -2.2 -1.0 Osteopenia Total Hip (Right) 0.769 -1.4 -0.5 Osteopenia Total Hip Mean 0.769 -1.4 -0.5 Osteopenia World Health Organization criteria for BMD impression classify patients as: Normal (T-score at or above -1.0), Osteopenia (T-score between -1.0 and -2.5), or Osteoporosis (T-score at or below -2.5). 10-year Fracture Risk: FRAX not reported because: Some T-score for Spine Total or Hip Total or Femoral Neck at or below -2.5 Treated for osteoporosis Previous Exams: -- Region Exam Age BMD T-score BMD Change BMD Change Date g/cm2 vs Baseline vs Previous -- AP Spine (L1-L4) 11/25/2024 59 0.772 -2.5 -0.6% -0.6% 02/28/2020 54 0.777 -2.5 Total Hip(Left) 11/25/2024 59 0.770 -1.4 -2.1% -2.1% 02/28/2020 54 0.787 -1.3 Total Hip(Right) 11/25/2024 59 0.769 -1.4 -0.1% -0.1% 02/28/2020 54 0.769 -1.4 -- *Denotes significance at 95% confidence level, LSC for AP Spine = 0.022 g/cm2, LSC for Total Hip = 0.027 g/cm2 Clinical Information Provided by Patient: Is being treated for osteoporosis Has used the following medications: Fosamax (i.e. alendronate), HRT (i.e. estrogen/hormone therapy), Vitamin D, Calcium Has the following medical conditions: Any Seizure Disorders Patient maximum height was 64 Menopause Age: 45 No regular weight bearing exercise Drinks caffeinated beverages Onset of menses at age 14 Number of children 2 Impression: The patient has osteoporosis, based on the Total Spine T-score. No significant bone loss was observed. Discussion: PATIENT UNDER TREATMENT WITH NO SIGNIFICANT BMD LOSS SINCE LAST EXAM. In an untreated patient, BMD typically declines with age. A lack of decline or gain is usually a sign that treatment is efficacious and fracture risk is reduced. It is important to ask patients whether they are taking their medications and to encourage continued and appropriate compliance with their osteoporosis therapies to reduce fracture risk. It is also important to review their risk factors and encourage appropriate calcium and vitamin D intakes, exercise, fall prevention and other lifestyle measures. Follow-Up: Consider a repeat BMD and Vertebral Fracture Assessment (VFA) exam in 2 years or sooner if medically necessary, to reassess this patient's status. Reported by: BO on 11/25/2024 12:54:00 PM. Reviewed, dictated and finalized at location A.
== END 2024-11-25 12:36 | disposition home or self-care (01) ==
LOC: MICIMG 12:35
PROVIDERS: PCP Family Medicine; Visit Provider Family Medicine
DX: M81.0 Age-related osteoporosis without current pathological fracture (principal); M85.89 Other specified disorders of bone density and structure, multiple sites; R07.81 Pleurodynia; Z78.0 Asymptomatic menopausal state
CPT/HCPCS: 71101; 77080